=== PATIENT | female | born 1990 | race Asian ===

== ENCOUNTER 2017-08-15 18:39 | Inpatient (IN) | payer SELFPAY ==
[~2017-08-15] VITALS: Ht 170.2 cm; Wt 86.6 kg
[2017-08-15] MEDS ORDERED: PREN-380 PO (19:24)
[2017-08-15] MEDS: LACTATED RINGERS 1,000 ML IV SCH ×3 (19:30→23:00)
[2017-08-15] MEDS ORDERED: OXYTOCIN 20 UNITS in LACTATED RINGERS 1,000 ML IV SCH (19:35)
[2017-08-15] MEDS ORDERED: NALBUPHINE HYDROCHLORIDE 10 MG/ML VIAL IVP PRN (19:35)
[2017-08-15] MEDS ORDERED: PROMETHAZINE 25 MG/ML VIAL IVP PRN (19:35)
[2017-08-15] MEDS ORDERED: OXYTOCIN 10 UNITS/ML VIAL IM SCH (19:35)
[2017-08-15 21:23] VITALS: BP 127/82
[2017-08-15 21:27] LABS: BASOPHILS # (AUTO) 0.1 K/uL (0.00-0.22); BASOPHILS % (AUTO) 0.6 % (0.0-2.0); EOSINOPHILS % (AUTO) 0.2 % (0.0-4.0); HEMATOCRIT 36.7 % (36-48); HEMOGLOBIN 12.4 g/dL (12.0-16.0); LYMPHOCYTES % (AUTO) 10.1 % (20.5-51.1); MEAN CORPUSCULAR HEMOGLOBIN 31 pg (27-31); MEAN CORPUSCULAR HGB CONC 34 g/dL (33-37); MEAN CORPUSCULAR VOLUME 90 fL (80-94); MONOCYTES # (AUTO) 0.5 K/uL (0.8-1.0); MONOCYTES % (AUTO) 5.2 % (1.7-9.3); NEUTROPHILS # (AUTO) 8.5 K/uL (1.8-7.7); NEUTROPHILS % (AUTO) 83.9 % (42.2-75.2); PLATELET COUNT (AUTO) 168 K/uL (140-450); RED BLOOD CELL COUNT(AUTO) 4.05 MIL/uL (4.20-5.40); RED CELL DISTRIBUTION WIDTH 12.7 % (11.6-13.7); WHITE BLOOD COUNT (AUTO) 10.1 K/uL (4.8-10.8)
[2017-08-15 21:38] LABS: ANION GAP 16.5 (8-16); CARBON DIOXIDE 24.2 mmol/L (21-32); CREATININE 0.8 mg/dL (0.6-1.3); POTASSIUM 3.7 mmol/L (3.5-5.1)
[2017-08-15 21:44] LABS: ALBUMIN 2.9 g/dL (3.4-5.0); TOTAL BILIRUBIN 0.3 mg/dL (0.0-1.0)
[2017-08-15 22:08] LABS: APPEARANCE,URINE SL CLOUDY (CLEAR); BILIRUBIN,URINE NEGATIVE (NEGATIVE); BLOOD, URINE 2+ (NEGATIVE); COLOR,URINE YELLOW (YELLOW); LEUKOCYTE ESTERASE ,URINE NEGATIVE (NEGATIVE); NITRITE, URINE NEGATIVE (NEGATIVE); UGLUCOSE NEGATIVE (NEGATIVE)
[2017-08-15] MEDS ORDERED: OXYTOCIN 20 UNITS/LR PREMIX 1,000 ML IV ONE (22:34)
[2017-08-15 23:13] LABS: RBC,URINE 11-20 (MOD) /HPF (0-5); WBC,URINE 0-5 (RARE) /HPF (0-5)
[2017-08-16] MEDS: LACTATED RINGERS 1,000 ML IV SCH (05:45)
[2017-08-16] MEDS ORDERED: MEASLES, MUMPS, AND RUBELLA 1 VIAL SQVAC PRN (07:05)
[2017-08-16] MEDS ORDERED: oxyCODONE/APAP 5/325 MG 1 TAB TAB PO PRN (07:05)
[2017-08-16] MEDS ORDERED: IBUPROFEN 800 MG TAB PO PRN (07:05)
[2017-08-16] MEDS ORDERED: OXYTOCIN 10 UNITS/ML VIAL IM PRN (07:05)
[2017-08-16] MEDS ORDERED: BENZOCAINE/MENTHOL 20%-0.5% 60 GM CAN TP PRN (07:05)
[2017-08-16] MEDS ORDERED: HYDROcodone/APAP 5/325 MG 1 TAB TAB PO PRN (07:05)
[2017-08-16] MEDS ORDERED: METHYLERGONOVINE 0.2 MG/ML AMP IM PRN (07:05)
[2017-08-16] MEDS ORDERED: TEMAZEPAM 15 MG CAP PO PRN (07:05)
[2017-08-16] MEDS ORDERED: OXYTOCIN 10 UNITS/ML VIAL ONE (07:59)
--- NOTE | 2017-08-16 08:40 | NUR ---
PATIENT HAS BEEN SCREENED AND CATEGORIZED LOW NUTRITIONAL RISK. PATIENT WILL BE SEEN WITHIN 7 DAYS OF ADMISSION. 08/21/[address]
[2017-08-16] MEDS ORDERED: DOCUSATE SOD/SENNA 50/8.6 MG 1 TAB PO SCH (21:00)
[2017-08-17 07:00] LABS: HEMATOCRIT 29.9 % (36-48); HEMOGLOBIN 10.1 g/dL (12.0-16.0)
[2017-08-18] MEDS ORDERED: INFLUENZA VIRUS VACCINE QUAD 0.5 ML SYR IMVAC SCH (09:00)
== END 2017-08-17 17:40 | disposition home or self-care (01) | DRG 775 ==
LOC: MLD 18:39 → MFCC 08-16 11:25
PROVIDERS: ADMIT Obstetrics & Gynecology; ATTEND Obstetrics & Gynecology
PROC: 10E0XZZ Delivery of Products of Conception, External Approach (ICD-10-PCS; principal; 2017-08-16)
PROC: 0W8NXZZ Division of Female Perineum, External Approach (ICD-10-PCS; 2017-08-16)
PROC: 3E0R3BZ Introduction of Anesthetic Agent into Spinal Canal, Percutaneous Approach (ICD-10-PCS; 2017-08-16)
PROC: 00HU33Z Insertion of Infusion Device into Spinal Canal, Percutaneous Approach (ICD-10-PCS; 2017-08-16)
DX: O69.81X0 Labor and delivery complicated by cord around neck, without compression, not applicable or unspecified (principal); Z28.21 Immunization not carried out because of patient refusal; Z37.0 Single live birth; Z3A.38 38 weeks gestation of pregnancy
CPT/HCPCS: 36415; 51702; 80053; 81001; 85018; 85025; 86592; 86886; 86900; 86901; 87086; J2590; J7120